=== PATIENT | female | born 1955 | race Caucasian/White ===

== ENCOUNTER 2017-12-17 00:43 | Emergency (ER) | payer BC, OTHER ==
[2017-12-17 00:52] VITALS: BP 150/96; PULSE 86; TEMP 98.3; BMI 17.5
--- NOTE | 2017-12-17 01:07 | PDOC ---
History of Present Illness - General Chief Complaint: Respiratory Stated Complaint: TROUBLE CATCHING HER BREATH Time Seen by Provider: 12/17/17 00:48 History Source: Patient Exam Limitations: No Limitations - History of Present Illness Initial Comments: 12/17/17 01:13 This is a 62-year-old female who has a long problem of GI complaints and is underweight. Patient said that she is been ill the last several months and had the flu. Patient said she was starting to feel better but was still very fatigued. Patient said that this evening she developed some epigastric discomfort that then resolved and she began to feel short of breath. Patient in the emergency room has normal vitals and a O2 sat of 100%. Patient denies any chest pain but does describe a rash or sensation in her chest. She denies any nausea, diaphoresis. She denies any risk factors for DVT including no recent travel or pain in her legs or family history of DVT. PAST MEDICAL HISTORY: no significant history PAST SURGICAL HISTORY: no significant history FAMILY HISTORY: no pertinant history SOCIAL HISTORY: Pt lives with family and is employed. MEDICATIONS: reviewed ALLERGIES: As per nursing notes Review of Systems General: No fevers or chills, no weakness, no weight loss HEENT: No change in vision. No sore throat,. No ear pain CardioVascular: Chest pressure with some shortness of breath Respiratory:No cough, or wheezing. Gastrointestinal: no nausea, vomitting, diarrhea or constipation, No rectal bleeding Genitourinary: No dysuria, hematuria, or frequency Musculoskeletal: No joint or muscle pain or swelling Neurologic: No headache, vertigo, dizziness or loss of consciousness Psychiatric: nor depression Skin: No rashes or easy bruising Endocrine: no increased thirst or abnormal weight change Allergic: no skin or latex allergy All other systems reviewed and normal Exam: General: Well-nourished well-developed individual, no acute distress HEENT: Throat: Normal, tonsils normal, no erythema or exudate Neck: Supple, no meningeal signs, no lymphadenopathy Eyes::Pupils equal reactive and round, extraocular motion intact Chest: Nontender to palpation Cardiac: S1-S2 normal, regular rate and rhythm, no murmurs rubs or gallops Respiratory: Lungs clear to auscultation bilateral Abdomen: Soft, nondistended, normal bowel sounds, nontender to palpation diffusely Extremities: Warm, dry, no cyanosis, clubbing, or edema Skin: No rashes Neuro: Alert and oriented x3, CN II - XII intact, nonfocal exam with normal strength, normal sensation, normal reflexes, normal gait, Psych: Normal mood and affect Medical decision making this is a 62-year-old female who comes in complaining of some shortness of breath and some fresh sure in her chest. We'll obtain a workup to rule out acute cardiac causes of her symptoms. Including CBC, comp, cardiac profile, chest x-ray and EKG. Differential diagnosis includes cardiac disease, gastritis, GI etiology, lower lobe infiltrate, anxiety, We'll reevaluate and follow-up with results of the workup. Past History - Past Medical History Allergies/Adverse Reactions: Allergies Allergy/AdvReac Type Severity Reaction Status Date / Time No Known Allergies Allergy Verified 12/17/17 00:46 Home Medications: Ambulatory Orders NK [No Known Home Medication] 12/17/17 COPD: No Other medical history: LYME DISEASE - Suicide/Smoking/Psychosocial Hx Smoking History: Never smoked Have you smoked in the past 12 months: No Information on smoking cessation initiated: No Hx Alcohol Use: No Drug/Substance Use Hx: No Substance Use Type: None *Physical Exam - Vital Signs Last Vital Signs Temp Pulse Resp BP Pulse Ox 98.3 F 86 16 150/96 100 12/17/17 00:47 12/17/17 00:47 12/17/17 00:47 12/17/17 00:47 12/17/17 00:47 ED Treatment Course - LABORATORY CBC & Chemistry Diagram: 12/17/17 01:15 12/17/17 01:15 *DC/Admit/Observation/Transfer Diagnosis at time of Disposition: Shortness of breath - Discharge Dispostion Disposition: HOME Condition at time of disposition: Stable Admit: No - Referrals - Patient Instructions Additional Instructions: Your workup including a cardiogram chest x-ray and blood work was all normal. Return to the emergency department immediately with ANY new, persistent or worsening symptoms. Continue any medications as previously prescribed by your physician. You should follow up with your primary doctor as soon as possible regarding today's emergency department visit. . Please make sure your doctor reviews the results of your emergency evaluation. Thank you for coming to the Emergency Department today for your care. It was a pleasure to see you today. Please note that your evaluation is INCOMPLETE until you follow-up with your doctor. - Post Discharge Activity
[2017-12-17 02:10] LABS: BASO % 0.6 % (0-2.0); EOS % 0.5 % (0-4.5); HEMATOCRIT 39.2 % (32.4-45.2); HEMOGLOBIN 13.6 GM/dL (10.7-15.3); LYMPH % 29.2 % (8-40); MCH 30.9 pg (25.7-33.7); MCHC 34.7 g/dl (32.0-36.0); MEAN CELL VOLUME 89.2 fl (80-96); MEAN PLT VOLUME 10.9 fl (7.5-11.1); MONO % 7.2 % (3.8-10.2); NEUT % 62.5 % (42.8-82.8); PLATELET COUNT 198 K/MM3 (134-434); RDW 13.7 % (11.6-15.6); WHITE BLOOD COUNT 5.5 K/mm3 (4.0-10.0)
[2017-12-17 03:04] LABS: ALBUMIN 4.1 g/dl (3.4-5.0); ALK PHOS 92 U/L (45-117); ANION GAP 6 (8-16); BILIRUBIN,TOTAL 0.3 mg/dL (0.2-1.0); BLOOD UREA NITROGEN 19 mg/dL (7-18); CALCIUM 8.8 mg/dL (8.5-10.1); CHLORIDE 104 mmol/L (98-107); CO2 28 mmol/L (21-32); CREATININE 0.7 mg/dL (0.55-1.02); GLUCOSE,RANDOM 102 mg/dL (74-106); POTASSIUM 4.1 mmol/L (3.5-5.1); SGOT/AST 18 U/L (15-37); SGPT/ALT 17 U/L (12-78); SODIUM 138 mmol/L (136-145); TOT PROT 7.6 g/dl (6.4-8.2)
--- NOTE | 2017-12-22 22:02 | EKG ---
Test Reason : Blood Pressure : / mmHG Vent. Rate : 069 BPM Atrial Rate : 069 BPM P-R Int : 160 ms QRS Dur : 052 ms QT Int : 384 ms P-R-T Axes : 080 016 012 degrees QTc Int : 411 ms NORMAL SINUS RHYTHM NONSPECIFIC ST ABNORMALITY ABNORMAL ECG NO PREVIOUS ECGS AVAILABLE Confirmed by MING LIM MD ([id number]) on 12/22/2017 10:01:44 PM Referred By: CHARLIE Confirmed By:MING LIM MD
== END 2017-12-17 03:29 | disposition home or self-care (01) ==
LOC: FER 00:43
DX: R06.02 Shortness of breath (principal); A69.20 Lyme disease, unspecified
CPT/HCPCS: 36415; 71045-TC-FY; 80053; 82550; 84484; 85025; 93005; 99281-25

== ENCOUNTER 2018-02-08 22:15 | Emergency (ER) | payer OTHER ==
[2018-02-08 22:21] VITALS: BP 141/88; PULSE 81; TEMP 98.1; BMI 16.5
--- NOTE | 2018-02-08 22:42 | PDOC ---
History of Present Illness - General Chief Complaint: Injury Stated Complaint: RT FOOT PAIN Time Seen by Provider: 02/08/18 22:19 - History of Present Illness Initial Comments: This 62-year-old woman with a history of esophageal motility issues presents with history of missing bottom step and staircase that she was walking down stairs earlier today. The patient subsequently twisted right foot, impacting medial portion of the foot as she twisted it. Since then, she has had pain in the medial midportion of her foot, especially with weightbearing. No previous history of right foot/ankle injury. Patient did not impact torso/head/neck at any time and has no other symptoms. Patient is unable to use anti-inflammatory medications or acetaminophen because of her esophageal problems. Past History - Past Medical History Allergies/Adverse Reactions: Allergies Allergy/AdvReac Type Severity Reaction Status Date / Time No Known Allergies Allergy Verified 12/17/17 00:46 Home Medications: Ambulatory Orders Famotidine [Pepcid -] 20 mg PO BID 02/08/18 Mag Hydrox/Al Hydrox/Simeth [Mylanta Oral Suspension -] 30 ml PO PRN PRN COPD: No GI Disorders: Yes - Suicide/Smoking/Psychosocial Hx Smoking History: Never smoked Have you smoked in the past 12 months: No Hx Alcohol Use: No Drug/Substance Use Hx: No Substance Use Type: None Review of Systems - Review of Systems Able to Perform ROS?: Yes Comments:: 12 point review of systems is negative except for what is noted in the history of present illness *Physical Exam - Vital Signs Last Vital Signs Temp Pulse Resp BP Pulse Ox 98.1 F 81 16 141/88 98 02/08/18 22:18 02/08/18 22:18 02/08/18 22:18 02/08/18 22:18 02/08/18 22:18 - Physical Exam Comments: GENERAL: Adult female, in mild distress secondary to right foot pain/anxiety; occasionally tearful HEAD: Normal with no signs of trauma. EXTREMITIES: Right foot-moderate edema/tenderness without deformity or ecchymosis medial portion of the midfoot No other edema/tenderness/deformity /ecchymosis; Dorsalis pedis pulse palpable at midfoot. Remainder of the extremity exam is normal NEUROLOGICAL: Cranial nerves II through XII grossly intact. Normal speech. No focal neurological deficits. SKIN: Warm, Dry, normal turgor, no rashes or lesions noted. ED Treatment Course - RADIOLOGY Radiology Studies Ordered: Category Date Time Status FOOT-RIGHT [RAD] Stat Radiology 02/08/18 22:21 Ordered Progress Note - Progress Note Progress Note: Right foot x-ray performed: Preliminary interpretation by me. There appears to be a nondisplaced fracture of the medial cuneiform bone. This is seen only in one view but correlates well with the area of tenderness on exam. No other abnormalities seen. Results discussed with the patient. Joaquim wrap and cast shoe applied. Patient continued to have pain with weightbearing and crutches fitted. Crutch walking instruction given. The patient does not have an orthopedist. Dr. Romero group environmental remediation specialist and referral information given to the patient. Patient should call the group on February 10 to arrange for follow-up within the next 48 hours. Since patient cannot take any analgesics, she should make sure that she elevates and ices area of pain as much as possible over the next 2 days *DC/Admit/Observation/Transfer Diagnosis at time of Disposition: Fracture of medial cuneiform of right foot Qualifiers: Encounter type: initial encounter Fracture type: closed Fracture alignment: nondisplaced Qualified Code(s): S92.244A - Nondisplaced fracture of medial cuneiform of right foot, initial encounter for closed fracture - Discharge Dispostion Disposition: HOME Condition at time of disposition: Stable - Referrals Referrals: Eran Kemp [Primary Care Provider] - Lito Romero MD [Staff Physician] - 2 Days - Patient Instructions Printed Discharge Instructions: Foot Fracture Additional Instructions: Elevate/ice to foot as much as possible over the next 2-3 days Use Joaquim wrap/cast shoe when up and around Crutches for ambulation until seen by orthopedist Call Dr. Romero orthopedic group on February 10 to arrange follow-up within the next 1-2 days - Post Discharge Activity
== END 2018-02-08 23:56 | disposition home or self-care (01) ==
LOC: FER 22:15
DX: S92.244A Nondisplaced fracture of medial cuneiform of right foot, initial encounter for closed fracture (principal); W10.9XXA Fall (on) (from) unspecified stairs and steps, initial encounter; Y93.89 Activity, other specified; Y92.9 Unspecified place or not applicable
CPT/HCPCS: 73630-TC-RT-FY; 99282-25

== ENCOUNTER 2018-03-27 12:13 | Emergency (ER) | payer OTHER ==
[2018-03-27 12:21] VITALS: BP 144/82; PULSE 75; TEMP 98.2; BMI 16.0
--- NOTE | 2018-03-27 12:57 | PDOC ---
History of Present Illness - General Chief Complaint: Weakness Stated Complaint: REFLUX Time Seen by Provider: 03/27/18 12:16 History Source: Patient Exam Limitations: No Limitations - History of Present Illness Initial Comments: 62 yo F history severe acid reflux presents with hoarse voice since this morning. She states she feels the acid bryan in her throat, and it is painful to speak, so she has been speaking softly. Denies chest pain, SOB, MALONEY. She states that she feels tingling in her hands, was concerned that she might have an electrolyte imbalance due to medication. She has had decreased PO intake due to reflux symptoms. She follows up with a GI physician regularly. Past History - Past Medical History Allergies/Adverse Reactions: Allergies Allergy/AdvReac Type Severity Reaction Status Date / Time ceftriaxone [From Rocephin] Allergy Verified 03/27/18 12:58 Home Medications: Ambulatory Orders Famotidine [Pepcid -] 20 mg PO AM 02/08/18 Pantoprazole Sodium [Protonix -] 20 mg PO HS 03/27/18 COPD: No GI Disorders: Yes Other medical history: REFLUX - Suicide/Smoking/Psychosocial Hx Smoking History: Never smoked Have you smoked in the past 12 months: No Information on smoking cessation initiated: No Hx Alcohol Use: No Drug/Substance Use Hx: No Substance Use Type: None Review of Systems - Review of Systems Able to Perform ROS?: Yes Comments:: GENERAL/CONSTITUTIONAL: No fever or chills. No weakness. HEAD, EYES, EARS, NOSE AND THROAT: No change in vision. No ear pain or discharge. +Sore throat. CARDIOVASCULAR: No chest pain or shortness of breath. RESPIRATORY: No cough, wheezing, or hemoptysis. GASTROINTESTINAL: No nausea, vomiting, diarrhea or constipation. GENITOURINARY: No dysuria, frequency, or change in urination. MUSCULOSKELETAL: No joint or muscle swelling or pain. No neck or back pain. SKIN: No rash NEUROLOGIC: No headache, vertigo, loss of consciousness, or change in strength/ sensation. ENDOCRINE: No increased thirst. No abnormal weight change. HEMATOLOGIC/LYMPHATIC: No anemia, easy bleeding, or history of blood clots. ALLERGIC/IMMUNOLOGIC: No hives or skin allergy. *Physical Exam - Vital Signs Last Vital Signs Temp Pulse Resp BP Pulse Ox 98.2 F 75 20 144/82 100 03/27/18 12:13 03/27/18 12:13 03/27/18 12:13 03/27/18 12:13 03/27/18 12:13 - Physical Exam Comments: GENERAL: Awake, alert, and fully oriented, in no acute distress. Appears frail and chronically ill. HEAD: No signs of trauma EYES: PERRLA, EOMI, sclera anicteric, conjunctiva clear ENT: Auricles normal inspection, hearing grossly normal, nares patent, oropharynx clear without exudates. Dry mucosa NECK: Normal ROM, supple, no lymphadenopathy, JVD, or masses LUNGS: Breath sounds equal, clear to auscultation bilaterally. No wheezes, and no crackles HEART: Regular rate and rhythm, normal S1 and S2, no murmurs, rubs or gallops ABDOMEN: Soft, diffuse mild tenderness, normoactive bowel sounds. No guarding, no rebound. No masses EXTREMITIES: Normal range of motion, no edema. No clubbing or cyanosis. No cords, erythema, or tenderness NEUROLOGICAL: Cranial nerves II through XII grossly intact. Normal gait. Motor and sensation intact. Able to speak but it causes discomfort. No muffled voice, however. SKIN: Warm, Dry, normal turgor, no rashes or lesions noted. ED Treatment Course - LABORATORY CBC & Chemistry Diagram: 03/27/18 13:19 03/27/18 13:19 Medical Decision Making - Medical Decision Making Pt declined any medication- both protonix and carafate- stating that she does not like the side effects. She only takes 20 mg of protonix as well as an H2 george at home. Her main concern was to check her electrolytes, which were wnl. Stable for DC. *DC/Admit/Observation/Transfer Diagnosis at time of Disposition: Dehydration GERD (gastroesophageal reflux disease) Qualifiers: Esophagitis presence: esophagitis presence not specified Qualified Code(s): K21.9 - Gastro-esophageal reflux disease without esophagitis - Discharge Dispostion Disposition: HOME Condition at time of disposition: Stable Decision to Admit order: No - Referrals - Patient Instructions Printed Discharge Instructions: DI for Gastroesophageal Reflux Disease (GERD) - Post Discharge Activity
[2018-03-27] MEDS ORDERED: SODIUM CHLORIDE 1,000 ML IV STA (12:59)
[2018-03-27] MEDS ORDERED: PANTOPRAZOLE SODIUM 40 MG VIAL IVPUSH ONE (12:59)
[2018-03-27 13:24] LABS: BASO % 0.9 % (0-2.0); EOS % 0.7 % (0-4.5); HEMATOCRIT 42.3 % (32.4-45.2); HEMOGLOBIN 14.4 GM/dl (10.7-15.3); LYMPH % 26.3 % (8-40); MCH 30.3 pg (25.7-33.7); MCHC 33.9 g/dl (32.0-36.0); MEAN CELL VOLUME 89.3 fl (80-96); MONO % 7.3 % (3.8-10.2); NEUT % 64.8 % (42.8-82.8); PLATELET COUNT 253 K/MM3 (134-434); RBC 4.74 M/mm3 (3.60-5.2); RDW 12.3 % (11.6-15.6); WHITE BLOOD COUNT 5.9 K/mm3 (4.0-10.8)
[2018-03-27 13:40] LABS: ALBUMIN 4.2 g/dl (3.5-5.0); ALK PHOS 71 U/L (32-92); ANION GAP 4 (8-16); BILIRUBIN,TOTAL 0.7 mg/dl (0.2-1.0); BLOOD UREA NITROGEN 11 mg/dl (7-18); CALCIUM 9.1 mg/dl (8.4-10.2); CHLORIDE 101 mmol/L (98-107); CO2 28 mmol/L (22-28); CREATININE 0.5 mg/dl (0.6-1.3); GLUCOSE,RANDOM 105 mg/dl (74-106); POTASSIUM 3.6 mmol/L (3.5-5.1); SGOT/AST 21 U/L (10-42); SGPT/ALT 16 U/L (10-40); SODIUM 133 mmol/L (136-145); TOT PROT 7.2 g/dl (6.4-8.3)
[2018-03-27 15:49] LABS: LIPASE 265 U/L (73-393)
== END 2018-03-27 14:14 | disposition home or self-care (01) ==
LOC: FER 12:13
PROC: 3E0337Z Introduction of Electrolytic and Water Balance Substance into Peripheral Vein, Percutaneous Approach (ICD-10-PCS; principal; 2018-03-27)
DX: E86.0 Dehydration (principal); K21.9 Gastro-esophageal reflux disease without esophagitis; Z88.1 Allergy status to other antibiotic agents
CPT/HCPCS: 36415; 80053; 83690; 85025; 99282-25; J7030

== ENCOUNTER 2021-10-28 16:59 | Inpatient (IN) | payer OTHER, BC ==
[2021-10-28] MEDS ORDERED: ACETAMINOPHEN 325 MG TABLET (FP) PO ONE (17:55)
[2021-10-28] MEDS ORDERED: ACETAMINOPHEN 325 MG TABLET (FP) ONE (17:56)
[2021-10-28 18:13] LABS: ACTIVATED PTT 26.3 SECONDS (25.2-36.5)
[2021-10-28 18:17] LABS: INR 1.28 (0.83-1.09); PROTHROMBIN TIME (PATIENT) 14.2 SEC (9.7-13.0)
[2021-10-28 18:27] LABS: ALBUMIN 3.8 g/dl (3.4-5.0); BILIRUBIN,TOTAL 0.6 mg/dl (0.2-1); CALCIUM 9.2 mg/dl (8.5-10); CREATININE 0.4 mg/dl (0.55-1.3)
[2021-10-28] MEDS ORDERED: ACETAMINOPHEN 1000 MG/100 ML BAG IVPB ONE (18:27)
[2021-10-28] MEDS ORDERED: ACETAMINOPHEN INJECTION 100 ML IVPB ONE (18:28)
[2021-10-28 19:28] LABS: EPITHELIAL CELLS FEW /hpf
[2021-10-28 19:53] LABS: HEMATOCRIT 34.9 % (32.4-45.2); HEMOGLOBIN 11.5 GM/dL (10.7-15.3); MCHC 32.9 g/dl (32.0-36.0); MEAN CELL VOLUME 88.3 fl (80-96); MEAN PLT VOLUME 11.6 fl (7.5-11.1); PLATELET COUNT 142 10^3/uL (134-434); RBC 3.96 M/mm3 (3.60-5.2); RDW 14.9 % (11.6-15.6); WHITE BLOOD COUNT 8.1 K/mm3 (4.0-10.0)
[2021-10-28 20:08] LABS: ANISOCYTOSIS 1+; MACROCYTOSIS 0; OVALOCYTE 1+; PLATELET ESTIMATE DECREASED; TARGET CELLS 1+
[2021-10-28 23:50] VITALS: BMI 15.2
[2021-10-29] MEDS ORDERED: ACETAMINOPHEN 500 MG TABLET (FP) PO PRN
[2021-10-29 08:49] LABS: CALCIUM 8.9 mg/dl (8.5-10); CREATININE 0.4 mg/dl (0.55-1.3)
[2021-10-29] MEDS ORDERED: BISACODYL 10 MG SUPP.RECT PR PRN (08:58)
[2021-10-29 09:22] LABS: BASO % 0.3 % (0-2.0); EOS % 1.1 % (0-4.5); HEMATOCRIT 32.8 % (32.4-45.2); HEMOGLOBIN 10.9 GM/dL (10.7-15.3); LYMPH % 13.4 % (8-40); MCH 29.2 pg (25.7-33.7); MCHC 33.2 g/dl (32.0-36.0); MEAN CELL VOLUME 88.1 fl (80-96); MEAN PLT VOLUME 11.5 fl (7.5-11.1); MONO % 5.1 % (3.8-10.2); NEUT % 80.1 % (42.8-82.8); PLATELET COUNT 136 10^3/uL (134-434); RBC 3.73 M/mm3 (3.60-5.2); RDW 14.6 % (11.6-15.6); WHITE BLOOD COUNT 5.2 K/mm3 (4.0-10.0)
[2021-10-29] MEDS: POLYETHYLENE GLYCOL (HEALTHYLAX) 3350 17 GM PACKET PO SCH (10:00)
[2021-10-29] MEDS: DOCUSATE SODIUM 100 MG CAPSULE (FP) PO SCH ×2 (10:01→21:38)
[2021-10-29] MEDS: ENOXAPARIN NA (PORCINE) 40 MG/0.4 ML DISP.SYRIN SQ SCH (10:01)
[2021-10-29 11:00] LABS: ERYTHROCYTE SEDIMENTATION RATE 14 mm/hr (0-30)
[2021-10-30] MEDS: ENOXAPARIN NA (PORCINE) 40 MG/0.4 ML DISP.SYRIN SQ SCH (10:21)
[2021-10-30] MEDS: POLYETHYLENE GLYCOL (HEALTHYLAX) 3350 17 GM PACKET PO SCH (10:22)
[2021-10-30] MEDS: DOCUSATE SODIUM 100 MG CAPSULE (FP) PO SCH ×2 (10:22→21:21)
[2021-10-30] MEDS: SUCRALFATE 1 GM/10 ML UNIT DOSE CUPS PO SCH ×2 (17:52→21:21)
[2021-10-31] MEDS: ENOXAPARIN NA (PORCINE) 40 MG/0.4 ML DISP.SYRIN SQ SCH (09:33)
[2021-10-31] MEDS: SUCRALFATE 1 GM/10 ML UNIT DOSE CUPS PO SCH (09:34)
[2021-10-31] MEDS: DOCUSATE SODIUM 100 MG CAPSULE (FP) PO SCH (09:34)
[2021-10-31] MEDS: POLYETHYLENE GLYCOL (HEALTHYLAX) 3350 17 GM PACKET PO SCH (09:34)
[2021-10-31 12:24] VITALS: BP 107/58; PULSE 83; TEMP 98.4
== END 2021-10-31 15:13 | DRG 535 ==
LOC: FER 16:59 → FM/S 21:19 → UNDODISIN 10-30 09:50
PROVIDERS: ADMIT Internal Medicine; ATTEND Nurse Practitioner Acute Care
DX: S32.414A Nondisplaced fracture of anterior wall of right acetabulum, initial encounter for closed fracture (principal); E43 Unspecified severe protein-calorie malnutrition; S32.591A Other specified fracture of right pubis, initial encounter for closed fracture; S32.10XA Unspecified fracture of sacrum, initial encounter for closed fracture; R18.8 Other ascites; Z68.1 Body mass index [BMI] 19.9 or less, adult; R64 Cachexia; C56.9 Malignant neoplasm of unspecified ovary; K21.9 Gastro-esophageal reflux disease without esophagitis; K59.00 Constipation, unspecified; W19.XXXA Unspecified fall, initial encounter; Y93.9 Activity, unspecified; Y92.89 Other specified places as the place of occurrence of the external cause; Y99.9 Unspecified external cause status
CPT/HCPCS: 36415; 71045-TC-FY; 73523-TC-FY; 73700-TC-RT; 80048; 80053; 81003; 81015; 82150; 83605; 83690; 85025; 85610; 85651; 85730; 86140; 86850; 86900; 86901; 87040; 87086; 93005; 97116-GP; 97163-GP; 99285-25; C9803; J0131; U0003; U0005

== ENCOUNTER → 2021-12-15 | Day surgery (SDC) | payer OTHER, BC ==
[2021-12-15 11:38] LABS: BASO % 0.4 % (0-2.0); EOS % 0.1 % (0-4.5); HEMOGLOBIN 12.3 GM/dL (10.7-15.3); LYMPH % 4.7 % (8-40); MCH 28.5 pg (25.7-33.7); MCHC 34.1 g/dl (32.0-36.0); MEAN CELL VOLUME 83.6 fl (80-96); MEAN PLT VOLUME 9.7 fl (7.5-11.1); MONO % 0.6 % (3.8-10.2); NEUT % 94.2 % (42.8-82.8); PLATELET COUNT 429 10^3/uL (134-434); RDW 14.7 % (11.6-15.6); WHITE BLOOD COUNT 7.8 K/mm3 (4.0-10.0)
[2021-12-15 11:46] LABS: INR 1.09 (0.83-1.09); PROTHROMBIN TIME (PATIENT) 12.6 SEC (9.7-13.0)
[2021-12-15 13:04] LABS: ANISOCYTOSIS 2+; MACROCYTOSIS 0; OVALOCYTE 2+
[2021-12-15 17:58] LABS: BF WBC & OTHER NUCLEATED CELLS 731 /mm3
[2021-12-15 21:05] LABS: BODY FLUID MACROPHAGES 25 %; BODY FLUID MESOTHELIAL 14 %; BODY FLUID MONOCYTE 3 %
[2021-12-19 17:07] LABS: BODY FLUID ALBUMIN 2.2 g/dL (Not Estab.)
== END | disposition home or self-care (01) ==
LOC: JRADIR 10:21
PROVIDERS: ATTEND Internal Medicine Hematology & Oncology
PROC: 0W9G3ZZ Drainage of Peritoneal Cavity, Percutaneous Approach (ICD-10-PCS; principal; 2021-12-15)
PROC: BW40ZZZ Ultrasonography of Abdomen (ICD-10-PCS; 2021-12-15)
DX: R18.8 Other ascites (principal)
CPT/HCPCS: 36415; 49083; 76942-TC; 82042; 82150; 82465; 82945; 83615; 83986; 84157; 84478; 85025; 85610; 87070; 87075; 87102; 87116; 87205; 87206; 87210; 88108; 88305-TC

== ENCOUNTER → 2021-12-18 | Day surgery (SDC) | payer OTHER, BC | END | disposition home or self-care (01) | LOC: JRADIR 11:30 | PROVIDERS: ATTEND Internal Medicine Hematology & Oncology | PROC: 0W9G3ZZ Drainage of Peritoneal Cavity, Percutaneous Approach (ICD-10-PCS; principal; 2021-12-18) | DX: R18.8 Other ascites (principal); C79.9 Secondary malignant neoplasm of unspecified site | CPT/HCPCS: 49083; 76942-TC ==

== ENCOUNTER → 2021-12-22 | Day surgery (SDC) | payer OTHER, BC ==
[2021-12-22 13:31] LABS: BASO % 0.3 % (0-2.0); EOS % 0.7 % (0-4.5); HEMATOCRIT 35.1 % (32.4-45.2); LYMPH % 15.9 % (8-40); MCH 28.4 pg (25.7-33.7); MCHC 34.2 g/dl (32.0-36.0); MEAN PLT VOLUME 8.5 fl (7.5-11.1); MONO % 10.3 % (3.8-10.2); NEUT % 72.8 % (42.8-82.8); PLATELET COUNT 252 10^3/uL (134-434); RBC 4.23 M/mm3 (3.60-5.2); RDW 14.2 % (11.6-15.6); WHITE BLOOD COUNT 2.7 K/mm3 (4.0-10.0)
[2021-12-22 13:54] LABS: CALCIUM 8.4 mg/dL (8.5-10.1)
[2021-12-22 13:55] LABS: ALBUMIN 2.2 g/dl (3.4-5.0); BLOOD UREA NITROGEN 16.1 mg/dL (7-18)
[2021-12-22 13:57] LABS: CREATININE 0.5 mg/dL (0.55-1.3)
[2021-12-22 13:59] LABS: TOT PROT 5.4 g/dl (6.4-8.2)
[2021-12-22 14:00] LABS: BILIRUBIN,TOTAL 0.3 mg/dL (0.2-1)
== END | disposition home or self-care (01) ==
LOC: JRADIR 11:11
PROVIDERS: ATTEND Internal Medicine Hematology & Oncology
PROC: 0W9G3ZZ Drainage of Peritoneal Cavity, Percutaneous Approach (ICD-10-PCS; principal; 2021-12-22)
DX: R18.8 Other ascites (principal); C80.1 Malignant (primary) neoplasm, unspecified
CPT/HCPCS: 36415; 49083; 76942-TC; 80053; 85025

== ENCOUNTER → 2022-01-08 | Day surgery (SDC) | payer OTHER, BC | END | disposition home or self-care (01) | LOC: JRADIR 12:09 | PROVIDERS: ATTEND Internal Medicine Hematology & Oncology | PROC: 0W9G3ZX Drainage of Peritoneal Cavity, Percutaneous Approach, Diagnostic (ICD-10-PCS; principal; 2022-01-08) | DX: R18.8 Other ascites (principal) | CPT/HCPCS: 49083; 76942-TC ==

== ENCOUNTER → 2022-01-12 | Day surgery (SDC) | payer OTHER, BC | END | disposition home or self-care (01) | LOC: JRADIR 11:32 | PROVIDERS: ATTEND Internal Medicine Hematology & Oncology | PROC: 0W9G3ZZ Drainage of Peritoneal Cavity, Percutaneous Approach (ICD-10-PCS; principal; 2022-01-12) | PROC: BW40ZZZ Ultrasonography of Abdomen (ICD-10-PCS; 2022-01-12) | DX: R18.8 Other ascites (principal) | CPT/HCPCS: 49083; 76942-TC ==

== ENCOUNTER → 2022-01-15 | Day surgery (SDC) | payer OTHER, BC | END | disposition home or self-care (01) | LOC: JRADIR 12:36 | PROVIDERS: ATTEND Internal Medicine Hematology & Oncology | PROC: 0W9G3ZZ Drainage of Peritoneal Cavity, Percutaneous Approach (ICD-10-PCS; principal; 2022-01-15) | DX: R18.0 Malignant ascites (principal) | CPT/HCPCS: 49083; 76942-TC ==

== ENCOUNTER → 2022-01-19 | Day surgery (SDC) | payer OTHER, BC ==
[2022-01-19 12:45] LABS: HEMATOCRIT 29.2 % (32.4-45.2); MCH 29.6 pg (25.7-33.7); MCHC 34.2 g/dl (32.0-36.0); MEAN CELL VOLUME 86.6 fl (80-96); MEAN PLT VOLUME 7.6 fl (7.5-11.1); PLATELET COUNT 308 10^3/uL (134-434); RBC 3.37 M/mm3 (3.60-5.2); RDW 18.7 % (11.6-15.6); WHITE BLOOD COUNT 3.4 K/mm3 (4.0-10.0)
[2022-01-19 12:52] LABS: INR 1.04 (0.83-1.09)
[2022-01-19 13:47] LABS: ANISOCYTOSIS 2+; MACROCYTOSIS 0; OVALOCYTE 2+; TEAR DROP CELLS 1+
== END | disposition home or self-care (01) ==
LOC: JRADIR 11:38
PROVIDERS: ATTEND Internal Medicine Hematology & Oncology
PROC: 0W9G3ZZ Drainage of Peritoneal Cavity, Percutaneous Approach (ICD-10-PCS; principal; 2022-01-19)
DX: C56.9 Malignant neoplasm of unspecified ovary (principal); R18.0 Malignant ascites
CPT/HCPCS: 36415; 49082; 76942-TC; 85025; 85610

== ENCOUNTER → 2022-01-22 | Day surgery (SDC) | payer OTHER, BC | END | disposition home or self-care (01) | LOC: JRADIR 12:01 | PROVIDERS: ATTEND Internal Medicine Hematology & Oncology | PROC: 0W9G3ZZ Drainage of Peritoneal Cavity, Percutaneous Approach (ICD-10-PCS; principal; 2022-01-22) | DX: C56.9 Malignant neoplasm of unspecified ovary (principal); R18.0 Malignant ascites | CPT/HCPCS: 49082; 76942-TC ==

== ENCOUNTER → 2022-01-26 | Day surgery (SDC) | payer OTHER, BC | END | disposition home or self-care (01) | LOC: JRADIR 11:51 | PROVIDERS: ATTEND Internal Medicine Hematology & Oncology | PROC: 0W9G3ZZ Drainage of Peritoneal Cavity, Percutaneous Approach (ICD-10-PCS; principal; 2022-01-26) | DX: C56.9 Malignant neoplasm of unspecified ovary (principal); R18.0 Malignant ascites | CPT/HCPCS: 49083; 76942-TC ==

== ENCOUNTER → 2022-01-29 | Day surgery (SDC) | payer OTHER, BC | END | disposition home or self-care (01) | LOC: JRADIR 12:07 | PROVIDERS: ATTEND Internal Medicine Hematology & Oncology | PROC: 0W9G3ZZ Drainage of Peritoneal Cavity, Percutaneous Approach (ICD-10-PCS; principal; 2022-01-29) | DX: C56.9 Malignant neoplasm of unspecified ovary (principal); R18.0 Malignant ascites | CPT/HCPCS: 49083; 76942-TC ==

== ENCOUNTER → 2022-02-02 | Day surgery (SDC) | payer OTHER, BC | END | disposition home or self-care (01) | LOC: JRADIR 12:11 | PROVIDERS: ATTEND Internal Medicine Hematology & Oncology | PROC: 0W9G3ZZ Drainage of Peritoneal Cavity, Percutaneous Approach (ICD-10-PCS; principal; 2022-02-02) | DX: C56.9 Malignant neoplasm of unspecified ovary (principal); R18.0 Malignant ascites | CPT/HCPCS: 49083; 76942-TC ==

== ENCOUNTER → 2022-02-05 | Day surgery (SDC) | payer OTHER, BC ==
[2022-02-05 14:07] LABS: BF WBC & OTHER NUCLEATED CELLS 585 /mm3
[2022-02-05 14:46] LABS: BODY FLUID MACROPHAGES 24 %
[2022-02-07 17:09] LABS: BODY FLUID ALBUMIN 1.9 g/dL (Not Estab.)
== END | disposition home or self-care (01) ==
LOC: JRADIR 11:56
PROVIDERS: ATTEND Internal Medicine Hematology & Oncology
PROC: 0W9G3ZZ Drainage of Peritoneal Cavity, Percutaneous Approach (ICD-10-PCS; principal; 2022-02-05)
PROC: BW40ZZZ Ultrasonography of Abdomen (ICD-10-PCS; 2022-02-05)
DX: R18.0 Malignant ascites (principal); C56.9 Malignant neoplasm of unspecified ovary
CPT/HCPCS: 36415; 49083; 76942-TC; 82042; 82150; 82465; 82945; 83615; 83986; 84157; 84478; 87070; 87075; 87102; 87116; 87205; 87206; 87210; 87899; 88108; 88305-TC; 88342-TC

== ENCOUNTER → 2022-02-09 | Day surgery (SDC) | payer OTHER, BC | END | disposition home or self-care (01) | LOC: JRADIR 11:58 | PROVIDERS: ATTEND Internal Medicine Hematology & Oncology | PROC: 0W9G3ZZ Drainage of Peritoneal Cavity, Percutaneous Approach (ICD-10-PCS; principal; 2022-02-09) | DX: C56.9 Malignant neoplasm of unspecified ovary (principal); R18.0 Malignant ascites | CPT/HCPCS: 49083; 76942-TC ==

== ENCOUNTER → 2022-02-12 | Day surgery (SDC) | payer OTHER, BC | END | disposition home or self-care (01) | LOC: JRADIR 11:56 | PROVIDERS: ATTEND Internal Medicine Hematology & Oncology | PROC: 0W9G3ZZ Drainage of Peritoneal Cavity, Percutaneous Approach (ICD-10-PCS; principal; 2022-02-12) | DX: C56.9 Malignant neoplasm of unspecified ovary (principal); R18.0 Malignant ascites | CPT/HCPCS: 49083; 76942-TC ==

== ENCOUNTER → 2022-02-16 | Day surgery (SDC) | payer OTHER, BC | END | disposition home or self-care (01) | LOC: JASU-SURG 12:02 | PROVIDERS: ATTEND Internal Medicine Hematology & Oncology | PROC: 0W9G3ZZ Drainage of Peritoneal Cavity, Percutaneous Approach (ICD-10-PCS; principal; 2022-02-16) | PROC: BW40ZZZ Ultrasonography of Abdomen (ICD-10-PCS; 2022-02-16) | DX: C56.9 Malignant neoplasm of unspecified ovary (principal); R18.0 Malignant ascites | CPT/HCPCS: 49083; 76942-TC ==

== ENCOUNTER → 2022-02-19 | Day surgery (SDC) | payer OTHER, BC | END | disposition home or self-care (01) | LOC: JRADIR 11:55 | PROVIDERS: ATTEND Internal Medicine Hematology & Oncology | PROC: 0W9G3ZZ Drainage of Peritoneal Cavity, Percutaneous Approach (ICD-10-PCS; principal; 2022-02-19) | DX: C56.9 Malignant neoplasm of unspecified ovary (principal); R18.0 Malignant ascites | CPT/HCPCS: 49083; 76942-TC ==

== ENCOUNTER → 2022-02-23 | Day surgery (SDC) | payer OTHER, BC ==
[2022-02-23 12:29] LABS: BASO % 0.7 % (0-2.0); EOS % 0.1 % (0-4.5); HEMATOCRIT 31.9 % (32.4-45.2); HEMOGLOBIN 10.7 GM/dL (10.7-15.3); LYMPH % 10.7 % (8-40); MCH 30.2 pg (25.7-33.7); MCHC 33.5 g/dl (32.0-36.0); MEAN CELL VOLUME 90.3 fl (80-96); MEAN PLT VOLUME 7.4 fl (7.5-11.1); MONO % 1.1 % (3.8-10.2); NEUT % 87.4 % (42.8-82.8); PLATELET COUNT 348 10^3/uL (134-434); RBC 3.53 M/mm3 (3.60-5.2); RDW 21.3 % (11.6-15.6); WHITE BLOOD COUNT 2.2 K/mm3 (4.0-10.0)
[2022-02-23 12:39] LABS: INR 0.97 (0.83-1.09); PROTHROMBIN TIME (PATIENT) 11.2 SEC (9.7-13.0)
[2022-02-23 12:54] LABS: ANISOCYTOSIS 2+; MACROCYTOSIS 0
== END | disposition home or self-care (01) ==
LOC: JRADIR 11:25
PROVIDERS: ATTEND Internal Medicine Hematology & Oncology
PROC: 0W9G3ZZ Drainage of Peritoneal Cavity, Percutaneous Approach (ICD-10-PCS; principal; 2022-02-23)
PROC: BW40ZZZ Ultrasonography of Abdomen (ICD-10-PCS; 2022-02-23)
DX: R18.8 Other ascites (principal)
CPT/HCPCS: 36415; 49083; 76942-TC; 85025; 85610

== ENCOUNTER → 2022-02-27 | Day surgery (SDC) | payer OTHER, BC | END | disposition home or self-care (01) | LOC: JRADIR 12:06 | PROVIDERS: ATTEND Internal Medicine Hematology & Oncology | PROC: 0W9G3ZX Drainage of Peritoneal Cavity, Percutaneous Approach, Diagnostic (ICD-10-PCS; principal; 2022-02-27) | PROC: BW40ZZZ Ultrasonography of Abdomen (ICD-10-PCS; 2022-02-27) | DX: R18.8 Other ascites (principal) | CPT/HCPCS: 49083; 76942-TC ==

== ENCOUNTER → 2022-03-02 | Day surgery (SDC) | payer OTHER, BC | END | disposition home or self-care (01) | LOC: JRADIR 11:57 | PROVIDERS: ATTEND Internal Medicine Hematology & Oncology | PROC: 0W9G3ZZ Drainage of Peritoneal Cavity, Percutaneous Approach (ICD-10-PCS; principal; 2022-03-02) | DX: C56.9 Malignant neoplasm of unspecified ovary (principal); R18.0 Malignant ascites | CPT/HCPCS: 49083; 76942-TC ==

== ENCOUNTER → 2022-03-05 | Day surgery (SDC) | payer OTHER, BC | END | disposition home or self-care (01) | LOC: JRADIR 12:09 | PROVIDERS: ATTEND Internal Medicine Hematology & Oncology | PROC: 0W9G3ZZ Drainage of Peritoneal Cavity, Percutaneous Approach (ICD-10-PCS; principal; 2022-03-05) | DX: C56.9 Malignant neoplasm of unspecified ovary (principal); R18.0 Malignant ascites | CPT/HCPCS: 49083; 76942-TC ==

== ENCOUNTER → 2022-03-09 | Day surgery (SDC) | payer OTHER, BC | END | disposition home or self-care (01) | LOC: JRADIR 11:53 | PROVIDERS: ATTEND Internal Medicine Hematology & Oncology | PROC: 0W9G3ZZ Drainage of Peritoneal Cavity, Percutaneous Approach (ICD-10-PCS; principal; 2022-03-09) | DX: C56.9 Malignant neoplasm of unspecified ovary (principal); R18.0 Malignant ascites | CPT/HCPCS: 49083; 76942-TC ==

== ENCOUNTER → 2022-03-12 | Day surgery (SDC) | payer OTHER, BC | END | disposition home or self-care (01) | LOC: JRADIR 11:52 | PROVIDERS: ATTEND Internal Medicine Hematology & Oncology | PROC: 0W9G3ZZ Drainage of Peritoneal Cavity, Percutaneous Approach (ICD-10-PCS; principal; 2022-03-12) | DX: C56.9 Malignant neoplasm of unspecified ovary (principal); R18.0 Malignant ascites | CPT/HCPCS: 49083; 76942-TC ==

== ENCOUNTER → 2022-03-16 | Day surgery (SDC) | payer OTHER, BC | END | disposition home or self-care (01) | LOC: JRADIR 12:02 | PROVIDERS: ATTEND Internal Medicine Hematology & Oncology | PROC: 0W9G3ZZ Drainage of Peritoneal Cavity, Percutaneous Approach (ICD-10-PCS; principal; 2022-03-16) | DX: R18.8 Other ascites (principal) | CPT/HCPCS: 49083; 76942-TC ==

== ENCOUNTER → 2022-03-20 | Day surgery (SDC) | payer OTHER, BC | END | disposition home or self-care (01) | LOC: JRADIR 12:36 | PROVIDERS: ATTEND Internal Medicine Hematology & Oncology | PROC: 0W9G3ZZ Drainage of Peritoneal Cavity, Percutaneous Approach (ICD-10-PCS; principal; 2022-03-20) | DX: C56.9 Malignant neoplasm of unspecified ovary (principal); R18.0 Malignant ascites | CPT/HCPCS: 49083; 76942-TC ==

== ENCOUNTER → 2022-03-23 | Day surgery (SDC) | payer OTHER, BC | END | disposition home or self-care (01) | LOC: JRADIR 11:58 | PROVIDERS: ATTEND Internal Medicine Hematology & Oncology | PROC: 0W9G3ZZ Drainage of Peritoneal Cavity, Percutaneous Approach (ICD-10-PCS; principal; 2022-03-23) | DX: C56.9 Malignant neoplasm of unspecified ovary (principal); R18.0 Malignant ascites | CPT/HCPCS: 49083; 76942-TC ==

== ENCOUNTER → 2022-03-26 | Day surgery (SDC) | payer OTHER, BC | END | disposition home or self-care (01) | LOC: JRADIR 12:01 | PROVIDERS: ATTEND Internal Medicine Hematology & Oncology | PROC: 0W9G3ZZ Drainage of Peritoneal Cavity, Percutaneous Approach (ICD-10-PCS; principal; 2022-03-26) | PROC: BW40ZZZ Ultrasonography of Abdomen (ICD-10-PCS; 2022-03-26) | DX: C56.9 Malignant neoplasm of unspecified ovary (principal); R18.0 Malignant ascites | CPT/HCPCS: 49083; 76942-TC ==

== ENCOUNTER → 2022-03-30 | Day surgery (SDC) | payer OTHER, BC | END | disposition home or self-care (01) | LOC: JRADIR 11:59 | PROVIDERS: ATTEND Internal Medicine Hematology & Oncology | PROC: 0W9G3ZX Drainage of Peritoneal Cavity, Percutaneous Approach, Diagnostic (ICD-10-PCS; principal; 2022-03-30) | PROC: BW40ZZZ Ultrasonography of Abdomen (ICD-10-PCS; 2022-03-30) | DX: R18.0 Malignant ascites (principal); C56.9 Malignant neoplasm of unspecified ovary | CPT/HCPCS: 49083; 76942-TC ==

== ENCOUNTER → 2022-04-03 | Day surgery (SDC) | payer OTHER, BC | END | disposition home or self-care (01) | LOC: JRADIR 11:55 | PROVIDERS: ATTEND Internal Medicine Hematology & Oncology | PROC: 0W9G3ZX Drainage of Peritoneal Cavity, Percutaneous Approach, Diagnostic (ICD-10-PCS; principal; 2022-04-03) | PROC: BW40ZZZ Ultrasonography of Abdomen (ICD-10-PCS; 2022-04-03) | DX: R18.0 Malignant ascites (principal); C56.9 Malignant neoplasm of unspecified ovary | CPT/HCPCS: 49083; 76942-TC ==

== ENCOUNTER → 2022-04-06 | Day surgery (SDC) | payer OTHER, BC | END | disposition home or self-care (01) | LOC: JRADIR 12:07 | PROVIDERS: ATTEND Internal Medicine Hematology & Oncology | PROC: 0W9G3ZZ Drainage of Peritoneal Cavity, Percutaneous Approach (ICD-10-PCS; principal; 2022-04-06) | DX: C56.9 Malignant neoplasm of unspecified ovary (principal); R18.0 Malignant ascites | CPT/HCPCS: 49083; 76942-TC ==

== ENCOUNTER → 2022-04-09 | Day surgery (SDC) | payer OTHER, BC | END | disposition home or self-care (01) | LOC: JRADIR 12:04 | PROVIDERS: ATTEND Internal Medicine Hematology & Oncology | PROC: 0W9G3ZZ Drainage of Peritoneal Cavity, Percutaneous Approach (ICD-10-PCS; principal; 2022-04-09) | DX: C56.9 Malignant neoplasm of unspecified ovary (principal); R18.0 Malignant ascites | CPT/HCPCS: 49083; 76942-TC ==